=== PATIENT | female | born 1965 | race Two or more races ===

== ENCOUNTER 2018-02-17 10:22 | Outpatient (CLI) | payer OTHER | END 2018-02-17 10:34 | disposition home or self-care (01) | LOC: MAMO-SONO 10:22 | DX: N64.4 Mastodynia (principal); Z12.31 Encounter for screening mammogram for malignant neoplasm of breast ==

== ENCOUNTER 2022-08-04 17:20 | Emergency (ER) | payer OTHER ==
[~2022-08-04] VITALS: Ht 157.5 cm; Wt 61.2 kg
== END 2022-08-04 21:50 | disposition home or self-care (01) ==
LOC: ER 17:20
DX: J06.9 Acute upper respiratory infection, unspecified (principal)